=== PATIENT | female | born 1975 | race Caucasian/White ===

== ENCOUNTER 2021-05-15 13:38 | Outpatient (CLI) | payer OTHER, SELFPAY ==
--- NOTE | 2021-05-15 13:30 | DI.RAD_ITS ---
Exam(s) XR SHOULDER RT COMPLETE 2+V EXAM: XR SHOULDER RT COMPLETE 2+V CLINICAL HISTORY: right shoulder pain. TECHNIQUE: 2D digital imaging was performed of the right shoulder. Two images were obtained. AP an d axillary views were obtained. COMPARISON: No exams were available for comparison FINDINGS: BONES: No acute fracture is present. No bony destructive lesion is seen. JOINTS: No dislocation present. SOFT TISSUE: Normal. IMPRESSION: No acute abnormality. If there is concern for internal derangement, an MRI should be considered for further evaluation. DATA REPOSITORY: RADIATION DOSE DELIVERED:
== END 2021-05-15 13:39 | disposition home or self-care (01) ==
LOC: DIORS 13:39
PROVIDERS: Visit Provider Physician Assistant
DX: M25.511 Pain in right shoulder (principal)
CPT/HCPCS: 73030

== ENCOUNTER 2021-05-23 03:22 | Outpatient (CLI) | payer OTHER, SELFPAY ==
[2021-05-23 07:15] LABS: Abs Immature Grans 0.04 10^3/uL (0.0-0.06); Absolute Basophil Count 0.04 10^3/uL (0.0-0.2); Absolute Eosinophil Count 0.24 10^3/uL (0.0-0.7); Absolute Lymphocyte Count 1.96 10^3/uL (1.2-3.4); Absolute Monocyte Count 0.51 10^3/uL (0.1-0.8); Absolute Neutrophil Count 6.45 10^3/uL (1.2-6.7); Basophils % 0.4; Eosinophils % 2.6; HCT 42.6 % (36.0-46.0); Immature Grans % 0.4; Lymphocytes % 21.2; MCH 31.7 pg (27.0-33.0); MCHC 32.9 % (32.0-36.0); MCV 96.4 fL (80-95); MPV 9.6 fL (8.0-11.0); Monocytes % 5.5; Neutrophils % 69.9; Nucleated RBC 0 %; Platelet Count 240 10^3/uL (130-400); RBC 4.42 10^6/uL (3.93-5.22); RDW 12.6 % (11.7-14.6); RDW-SD 45.1 fL; WBC 9.24 10^3/uL (4.4-10.8)
[2021-05-23 07:25] LABS: ESR 2 mm/hr (0-20)
[2021-05-23 08:35] LABS: C-Reactive Protein < 0.05 mg/dL (0.0-0.3)
== END 2021-05-23 03:23 | disposition home or self-care (01) ==
LOC: LBO 03:22
PROVIDERS: Visit Provider Student in an Organized Health Care Education/Training Program
DX: M75.01 Adhesive capsulitis of right shoulder (principal); S43.431A Superior glenoid labrum lesion of right shoulder, initial encounter; S46.011A Strain of muscle(s) and tendon(s) of the rotator cuff of right shoulder, initial encounter; M25.511 Pain in right shoulder
CPT/HCPCS: 36415; 85652; 85025; 86140

== ENCOUNTER 2021-08-01 01:18 | Outpatient (CLI) | payer MEDICAID, SELFPAY ==
[2021-08-01 12:27] LABS: Source Nasal/Nares
[2021-08-01 15:22] LABS: COVID-19 PCR Negative (Negative)
== END 2021-08-01 01:19 | disposition home or self-care (01) ==
LOC: LBO 01:18
PROVIDERS: Visit Provider Student in an Organized Health Care Education/Training Program
DX: Z20.822 Contact with and (suspected) exposure to COVID-19 (principal); Z01.818 Encounter for other preprocedural examination
CPT/HCPCS: 87635

== ENCOUNTER 2021-08-03 05:59 | Day surgery (SDC) | payer MEDICAID, SELFPAY ==
[2021-08-03] VITALS (10 sets, daily range): BP systolic 78–122; BP diastolic 40–89; PULSE 83–98; RESP 16–96; TEMP 36–36.5; O2SAT 93–100; BMI 20.4
--- NOTE | 2021-08-03 06:28 | W.ANESPRE ---
General Info Date of Service Date Performed: 08/03/21 Height: 5 ft 1 in Weight: 49 kg Body Mass Index (BMI): 20.4 Surgical Procedure: Operation Date: 08/03/21 07:40 Proposed Procedures Side Surgeon p REVISION SHOULDER ARTHROSCOPY WITH EXT. FARIDA., REMOVAL OF HARDWARE, BICEPS TENODESIS, SUBACROMIAL DECOMPRESSION, ALLOGRAT SCR. POSSIBLE MANIPULATION UNDER ANESTHESIA Right Mati Ramirez MD Meds Allergies and Home Medications Allergies Allergy/AdvReac Type Severity Reaction Status Date / Time NSAIDS (Non-Steroidal AdvReac Severe gi issues Verified 08/03/21 06:18 Anti-Inflamma Opioids - Morphine Analogues AdvReac Intermediate Verified 08/03/21 06:18 Home Medication Medication Instructions Recorded eletriptan 40 mg tablet 40 mg PO ONCE 05/09/21 acetaminophen 325 mg capsule 325 mg PO ONCE PRN 05/15/21 amoxicillin 500 mg PO TID 14 Days #42 cap 08/03/21 aspirin 81 mg PO DAILY 14 Days #14 tab 08/03/21 aspirin 81 mg PO DAILY 14 Days #14 tab 08/03/21 naproxen 250 - 500 mg PO BID PRN #40 tab 08/03/21 naproxen 250 - 500 mg PO BID PRN #40 tab 08/03/21 oxycodone 5 - 10 mg PO Q4H PRN #18 tab MDD 08/03/21 30 mg oxycodone 5 - 10 mg PO Q4H PRN #18 tab MDD 08/03/21 30 mg Current Visit Medications: Current Medications Generic Name Dose Route Start Last Admin Trade Name Freq PRN Reason Stop Dose Admin Ringer's Solution 1,000 mls @ 100 mls/hr 08/03/21 06:00 IV 08/06/21 23:59 INFUSION JEROME Cefazolin Sodium/Dextrose 2 gm in 50 mls @ 100 mls/hr 08/03/21 06:00 Ancef Duplex IVPB 08/03/21 16:00 PREOP JEROME IV Miscellaneous Supplies 1 each 08/03/21 06:00 Iv Access IV 08/06/21 23:59 DIRECTED JEROME Sodium Chloride 0 ml 08/03/21 06:00 Normal Saline Flush 10 Ml Syr IV 08/06/21 23:59 PRN PRN Sodium Chloride 0 ml 08/03/21 06:00 Normal Saline 10 Ml Vial IJ 08/06/21 23:59 DIRECTED PRN Sterile Water 0 ml 08/03/21 06:00 Water,Injection,Sterile 10 Ml Vial IJ 08/06/21 23:59 DIRECTED PRN PFSH Active Problems Active Problems: Problem Status Onset Code SLAP lesion of right shoulder S43.431A Traumatic tear of right rotator cuff S46.011A Adhesive capsulitis of right shoulder M75.01 Contracture of right shoulder M24.511 Medical History Medical History (Updated 08/03/21 @ 07:20 by Mati Ramirez MD) History of cancer of vulva Migraine Medical History Comments:: Per pt. states her mother has a hard time waking, pt. states she is okay waking up Surgical History Surgical History History of History of hysterectomy History of knee surgery History of tonsillectomy and adenoidectomy History of vulvectomy 07/08/2020 Hx of hand surgery Hx of shoulder surgery [place] teeth extracted Tobacco Smoking/Tobacco Use Status: Never Alcohol Alcohol Intake: current Alcohol intake frequency: 0-2 drinks per day Alcohol type: wine Substance Use Substance use: Never Substance use type: does not use Vital Signs and Lab Results Vital Signs Most Recent Vital Signs in EMR: Most Recent Vital Signs Temp Pulse Resp BP Pulse Ox 36.2 C L 83 16 120/76 100 08/03/21 06:12 08/03/21 06:12 08/03/21 06:12 08/03/21 06:12 08/03/21 06:12 Lab Results Blood Type / Crossmatch: No Data to Display Complete Blood Count: No Data to Display Complete Metabolic Panel: No Data to Display Liver Function Panel: No Data to Display Coagulation Panel: No Data to Display Cardiac Panel: No Data to Display Arterial Blood Gas: No Data to Display Venous Blood Gas: No Data to Display Pancreas Panel: No Data to Display Thyroid Panel: No Data to Display Infectious Disease: Coronavirus (COVID-19)(PCR) Negative (Negative) 08/01/21 10:27 08/01/21 Coronavirus 2019 Source Nasal/Nares 08/01/21 10:27 08/01/21 Blood Cultures: No Data to Display Toxicology Panel: No Data to Display Panel: No Data to Display Anesthesia Assessment and Plan Anesthesia History Personal History: No History of Anesthesia Complications Family History: Other Exercise Tolerance Exercise Tolerance: Metabolic Equivalents>4 Pertinent Negatives Pertinent Negatives: No Symptoms of GERD, No Major Cardiovascular Symptoms or Complaints, No Major Pulmonary Symptoms or Complaints and No History of CVA/TIA Cardiac & Pulmonary Exam Cardiac Exam: Normal S1/S2 Heart Sounds Pulmonary Exam: Clear Bilateral Breath Sounds Implantable Cardiac Device Does patient have a Pacemaker or an ICD?: No Airway Exam Known Difficult Airway: No Mallampati Class: 2 Mouth Opening: Normal (> 3cm) Thyromental Distance: Greater than 3 cm Neck Range of Motion: Full ROM Neck Circumference: Normal Teeth Condition: Normal Dentition ASA Classification ASA Score: ASA 2 Emergency Case?: No NPO Status NPO Status: NPO Clears >2 hours, Solids >8 hours Status Status: Not Relevant due to Medical History and History of Hysterectomy Anesthesia Plan Resuscitation Status: Full Code Anesthesia Technique: General Anesthesia Airway Planned: Endotracheal Tube Pain Management: Surgeon and patient request nerve block Monitors Used: Standard Monitors
[2021-08-03] MEDS: Lactated Ringers 1,000 ML 100 ML IV (06:53)
[2021-08-03] MEDS: Ondansetron 4 MG/2 ML VIAL IVP (06:54)
[2021-08-03] MEDS: Normal Saline Flush 10 ML SYR IV (06:55)
[2021-08-03] MEDS: ceFAZolin 2 GM/50 ML BAG IVPB (08:31)
--- NOTE | 2021-08-03 08:32 | W.ANESNERVE ---
Nerve Block Single Injection Procedure Date and Time Date Performed: 08/03/21 Procedure Start: 07:20 Location Where Procedure Performed Procedure Location: Day Surgery Unit Reason Performed: Postoperative Analgesia Requesting Provider: Mati Ramirez Timeout Performed Timeout Performed: Yes Monitoring Used ECG, Blood Pressure, SpO2 and See EMR for corresponding vital signs Sterility Sterility: Hand Hygiene, Surgical Cap, Surgical Mask, Sterile Gloves and Chlorhexidine Sedation Given During Procedure Sedation Given (Indicate Dose Given): Versed IV Dose:: 6 mg Patient Mental Status Patient Mental Status: Sedate with meaningful communication Nerve Block 1st Nerve Block: Laterality: Right Block Type: Interscalene Needle / Catheter Used: 100mm SonoPlex II Local Anesthetic Bolus (Indicate Dose Given): Lidocaine used for local infiltration of skin, Injected in 3-5ml increments after negative blood aspiration, Bupivacaine 0.5% Dose:: 10 ml and Exparel Dose:: 10 ml Additives (Indicate Dose Given): Normal Saline (Used for hydrodisection 8 ml) Ultrasound: Sterile probe cover and gel used Ultrasound Image Saved?: Yes Nerve Stimulator: Not Used Paresthesia: None Procedure Tolerated: No Complications and Patient did not tolerate well (Patient had expectations of unconsciousness for procedure. I explained the depth of sedation planned. She requested more. The initial dose of 4 mg of Versed patient did not feel was adequate. I gave an additional 2 mg and patient became drowsy but conversational with verbal stimuli.) Procedure Outcome: Successful Procedure Comment: I checked in with the patient throughout if she wanted to continue. She affirmed yes each time. Patient had a good result postprocedurally, heavy block. Did state she was happy with block and procedure post. Performed By: Fuentes Martinez
[2021-08-03] MEDS: EPINEPHrine 30 MG/30 ML VIAL (10:13)
--- NOTE | 2021-08-03 10:15 | W.PM.OP ---
Date of service: 08/03/21 Time of Service: 08:00 Operative Note Operative Note DATE OF PROCEDURE: 08/03/21 PRE-OP DIAGNOSIS: Right: 1. Rotator cuff tear 2. SLAP repair with LHB tendinopathy 3. Bursitis 4. Adhesive capsulitis POST-OP DIAGNOSIS: same PROCEDURE: Right: 1. Arthroscopic biceps tenodesis, CPT# 60603. This involved arthroscopically suturing and reattaching the long head of the biceps tendon to the proximal humerus at the superior margin of the bicipital groove with a screw at the correct tension. 2. Extensive debridement, CPT# 54063. This involved using arthroscopic hand instruments, power instruments, and radiofrequency instruments to release the long head of the biceps tendon and debride areas of labral tearing and synovitis within the glenohumeral joint anteriorly, superiorly and posteriorly, release the anterior capsule and M GH L to restore external rotation, and remove retained permanent suture material and knot stacks from prior SLAP repair. 3. Subacromial decompression with partial acromioplasty, CPT# 51791. This involved using arthroscopic power instruments and a radiofrequency wand to complete a bursectomy, resect significant scarring from the subacromial space, and remove bone spurs on the undersurface of the acromion. 4. Manipulation under anesthesia, CPT #00371: This involved gentle guided manipulation of the shoulder in all directions to release adhesions however only incompletely with stiff endpoints requiring debridement capsular release both glenohumeral and subacromial. The assistant director of financial aid was medically required in order to help assist in techniques above, which require positioning the arm, holding the arthroscope, and manipulating multiple instruments and sutures at the same time. This cannot be done without the help of an experienced assistant director of financial aid. SURGEON: Mati Ramirez PI/SENIOR RESEARCH ASSOCIATE: Ned Smith ANESTHESIA TYPE: General LMA/ETT and Primary Nerve Block Refer to Anesthesia Record ESTIMATED BLOOD LOSS: 10 PATHOLOGY: none sent COMPLICATIONS: None Patient was transported to: PACU Patient's condition: stable Implants: Arthrex: 4.75mm SwiveLocks x 1 Indications: The patient was diagnosed with the above conditions and appropriately indicated for surgical intervention. Please see complete medical record for details. Findings: Exam under anesthesia: Persistent stiffness with external and internal rotation about 45 degrees and forward elevation 115 degrees. Stiff endpoints only limited releases with guided manipulation. Glenohumeral joint: Significant anterior, superior, and posterior scarring adhesions and thickened inflamed capsule. Intact subscapularis. Intact prior SLAP repair with appropriately placed suture anchors and no significant prominence. Limited adjacent superior capsule deficiency about the prior repair. Overall very intact and appropriate appearing articular sided supraspinatus and infraspinatus. Humeral head glenoid articular cartilage intact except for some central glenoid softening mild. Subacromial space: Significant bursitis and profound subacromial adhesions to rotator cuff throughout anteriorly medially and posteriorly. No mobility of rotator cuff prior to releases from acromion on all margins. Grossly intact bursal rotator cuff. Dissolving bio inductive allograft prior apple. Graft incorporated without any defects. Excellent trampoline. No obvious thinning, unable to probe any defects in the bursal cuff,, and unable to engage humeral head rotator cuff on acromion with superior migration. Procedure Description: In the operating room, general anesthesia was induced. Bilateral shoulders were examined. The patient was positioned in the beachchair position. All bony prominences were well-padded. Preoperative antibiotics were held pending tissue samples for culture. The shoulder was prepped and draped in the usual sterile fashion. The correct patient, procedure, and side of the procedure were all verified prior to incision. Starting through the posterior portal a standard complete diagnostic arthroscopy was performed of the glenohumeral joint including inspection of the long head of the biceps, anterior and superior labrum, subscapularis tendon, supraspinatus and infraspinatus tendons, and axillary recess. Rigid cannulas inserted anteriorly. The glenoid and humeral head cartilage as well as the posterior labrum were inspected from an anterior viewing portal. Significant findings and interventions noted above. Arthroscopic graspers and pituitary rongeur were used to obtain multiple tissue samples from multiple sites of inflamed synovium, superior labrum, and removed permanent suture material, which were into 2 specimen cups and sent to the lab for cultures. Cefazolin antibiotics were then administered. Arthroscopic scissors were used to release a thickened M GH L and then radiofrequency wand mechanical shaver to debride and restore anterior anterior superior rotator interval and subcoracoid recesse of significant scarring thickened contracted capsular inflamed tissue. An all-arthroscopic suprapectoral biceps tenodesis was performed through an anterior portal using a Loop N Tack method with a SutureTape FiberLink cinched around and through the tendon. The biceps was tenotomized from the labrum and fixated with a suture anchor at the superior margin of the bicipital groove. The remainder of the anterior, superior, and posterior labrum was debrided to a stable margin using mechanical shaver and radiofrequency ablator. Additional posterior permanent suture material was removed from the prior SLAP repair without any displacement or disruption of the healed labrum repair. There was a small zone of superior capsular defect about the prior SLAP repair site that was medial to the supraspinatus tendon. Starting through the posterior portal, the arthroscope was directed into the subacromial space. A lateral 50 yard line lateral portal was created. A combination of power instruments and a radiofrequency ablator were used to debride bursitis anteriorly, posteriorly, and laterally as well as expose and smooth bone spurring on the undersurface of the acromion. The coracoacromial ligament was partially released. The bursectomy was completed viewing laterally and working from posteriorly and the rotator cuff was thoroughly inspected with findings noted above. Significant time was spent probing, inspecting, and working and viewing from different portals releasing profound adhesions and thickened scarring of rotator cuff to acromion laterally, anteriorly, posterior, and fairly medially possibly rating to healing of the prior bio inductive allograft placed. Restored normal contour of rotator cuff after releases with appropriate motion corresponding the shoulder motion, which was now restored to full with easily 90 degrees external rotation at the side and full abduction. The rotator cuff demonstrated excellent integrity, which was surprising giving the patient clinical status and MR arthrogram. Possible explanation of contrast being injected inside the superior rotator cuff iatrogenically. Either way without any visible defect and unable to create any voids or find a weak area of bursal rotator cuff or articular rotator cuff, not appropriate to takedown significantly healthy tissue for repair or reconstruction. Thoroughly inspected and no indication for repair or reconstruction. With restored range of motion, removing of significant scar adhesions, hopefully decrease pain allowing return to function use and strength after prolonged period of dysfunction. The shoulder was drained of arthroscopic fluid. All portal sites were copiously irrigated. These incisions were closed using 3-0 Monocryl in a buried fashion and then covered with Mastisol, Steri-Strips, Xeroform, dry gauze, and ABDs. The dressings were covered and secured with Medipore tape. The operative extremity was placed into a sling for immobilization. The patient awoke from anesthesia without complication and was transferred to the recovery room in a stable condition.
--- NOTE | 2021-08-03 10:17 | PDOC.DSDIS_ITS ---
Discharge Plan Disposition Patient Disposition: HOME Condition: Stable Discharge Details Reason For Visit: Right shoulder surgery Attending Provider: Mati Ramirez Primary Care Provider: None,None Home Meds and New Rx's Prescriptions: New naproxen 250 mg tablet 250 - 500 mg PO BID PRNQty: 40 RF: 0 aspirin 81 mg tablet,delayed release (DR/EC) 81 mg PO DAILY 14 Days Qty: 14 RF: 0 oxycodone 5 mg tablet 5 - 10 mg PO Q4H MDD 30 mg PRN (Reason: moderate to severe pain) Qty: 18 RF: 0 naproxen 250 mg tablet 250 - 500 mg PO BID PRNQty: 40 RF: 0 aspirin 81 mg tablet,delayed release (DR/EC) 81 mg PO DAILY 14 Days Qty: 14 RF: 0 oxycodone 5 mg tablet 5 - 10 mg PO Q4H MDD 30 mg PRN (Reason: moderate to severe pain) Qty: 18 RF: 0 amoxicillin 500 mg capsule 500 mg PO TID 14 Days Qty: 42 RF: 0 Continued eletriptan 40 mg tablet 40 mg PO ONCE RF: 0 acetaminophen [Tylenol] 325 mg capsule 325 mg PO ONCE PRNRF: 0 Discharge Instructions Additional Instructions: Surgery: Revision shoulder arthroscopy with extensive debridement, contracture release, biceps tenodesis, and subacromial decompression. Activity: You should gradually increase range of motion motion and use of your shoulder. Please perform daily stretching exercises to prevent stiffness. You may use your shoulder for all regular activities. Avoid heavy lifting, reaching overhead, and lifting away from body for approximately 6 to 8 weeks. You may use the sling whenever you are out of the house for a couple weeks. At home it is best to remove the sling and rest the arm on a pillow at your side or support the operative side with your other hand. A physical therapy prescription will be sent electronically to resume in about 2 weeks. ACCELERATED protocol for isolated biceps repair. No rotator cuff repair. History of significant scarring and stiffness. Prescriptions: Sent to [facility] in [facility] on [facility] [employer] (unable to send to [place] or [place]) Amoxicillin 500 mg take 1 three times each day to prevent an infection for 14 days Aspirin 81 mg take 1 daily to prevent a blood clot for 2 weeks Naproxen 250 mg take 1-2 every 12 hours with a meal as needed for moderate pain. May use at the same time as stomach medicine from primary care physician. Oxycodone 5 mg take 1-2 every 4-6 hours as needed for severe pain You may use [id number] Tylenol (acetaminophen) as needed for mild pain. These pain medications may be taken all at once or in different combinations as needed. Also, recommend Colace (docusate) as a stool softener as surgery and pain medicine cause constipation. Dressings: Remove shoulder bandage after 3 days. Leave the sticky Steri-Strips in place until they fall off or remove them after you shower. Cover the incisions with Band-Aids or leave them open to air. You may shower after 5 days. Follow-up: 10-[address] Ramirez You may take off the leg compression stockings this evening at home. You may also leave them on a few days longer if you have a history of leg swelling or edema. Let us know right away if you develop any redness, drainage, fevers, chest pain, or trouble breathing. Do not drink alcohol or drive for at least 24 hours after anesthesia. Please call the office during business hours with any questions or concerns. Referrals: Mati Ramirez MD [ [facility] ST[facility]YSICIAN] - Discharge Orders Discharge Orders: Discharge Order (Routine); Ordered 08/03/21 Ordered By: Mati Ramirez DS: Diagnosis Discharge Diagnosis (1) SLAP lesion of right shoulder: Status: Acute (2) Traumatic tear of right rotator cuff: Status: Acute (3) Adhesive capsulitis of right shoulder: Status: Acute (4) Contracture of right shoulder: Status: Acute (5) Bursitis of right shoulder: Status: Acute
--- NOTE | 2021-08-03 11:28 | W.ANESPOSTOP ---
Postoperative Evaluation Date, Time and Location Date Performed: 08/03/21 Time Performed: 11:29 Patient Location: Day Surgery Unit Vital Signs Most Recent Imported Vital Signs: Most Recent Vital Signs Temp Pulse Resp BP Pulse Ox 36 C L 83 16 107/70 94 08/03/21 11:10 08/03/21 11:10 08/03/21 11:10 08/03/21 11:10 08/03/21 11:10 Pain Score Most Recent Pain Score: Most Recent Pain Score Pain Level 3 08/03/21 11:10 Assessment Mental Status: Awake (Alert & Oriented to Patient Baseline) Airway and Respiratory Function: Patent airway with normal (patient baseline) respiratory exam Cardiovascular Function: Hemodynamically Stable Hydration Status: Adequately Hydrated Nausea & Vomiting: No Nausea or Vomiting Pain: Pt. Denies Any Pain Peripheral Nerve Block: Patient did not receive a nerve block
[2021-08-03] MEDS: oxyCODONE 5 MG TAB PO (11:48)
--- NOTE | 2021-08-07 11:54 | PDOC.ANES ---
Date of service: 08/07/21 Time of Service: 08:15 Anesthesia Note Report Anesthesia Note: Patient called Sunday 08/06 with complaint of jaw pain. Note relayed to me, however, it was my day off and I called her this morning at 0811. Patient reports jaw pain is much better. Connection on the call was spotty and at times very difficult to hear the patient. From what I gathered no other complaint. I did explain the delay in getting back to her was due to our wish to have the provider who took part in the case be the one to call her. Due to the poor connection we finished the call quickly. I did try to tell the patient that if she had any other questions or concerns to call back.
== END 2021-08-03 13:14 | disposition home or self-care (01) ==
PROVIDERS: Visit Provider Student in an Organized Health Care Education/Training Program
PROC: (CPT 29827; principal; 2021-08-03 07:30)
DX: S43.431A Superior glenoid labrum lesion of right shoulder, initial encounter (principal); S46.011A Strain of muscle(s) and tendon(s) of the rotator cuff of right shoulder, initial encounter; M75.01 Adhesive capsulitis of right shoulder; M24.511 Contracture, right shoulder; M75.51 Bursitis of right shoulder; X58.XXXA Exposure to other specified factors, initial encounter
CPT/HCPCS: 29828; 29823; 29826; 76942; 87070; 87075; 87205; J0690; J1100; J2001; J2250; J2370; J2405; J3010

== ENCOUNTER 2021-11-07 11:10 | Outpatient (CLI) | payer MEDICAID, SELFPAY ==
[2021-11-07 11:36] LABS: Source Nasal/Nares
[2021-11-07 14:22] LABS: COVID-19 PCR Negative (Negative)
== END 2021-11-07 11:11 | disposition home or self-care (01) ==
LOC: LBO 11:11
PROVIDERS: Visit Provider Student in an Organized Health Care Education/Training Program
DX: Z20.822 Contact with and (suspected) exposure to COVID-19 (principal); Z01.818 Encounter for other preprocedural examination
CPT/HCPCS: 87635

== ENCOUNTER 2021-11-08 08:21 | Day surgery (SDC) | payer MEDICAID, SELFPAY ==
--- NOTE | 2021-11-07 15:12 | DSU.FORM ---
Patient called several times 1300, 1430, 1515 today to give her her arrival time and pre op instructions. Phone call went right to . Office made aware and will use the [employer] system to text her.
[2021-11-08] VITALS (8 sets, daily range): BP systolic 93–125; BP diastolic 60–92; PULSE 60–80; RESP 12–27; TEMP 36.1–36.6; O2SAT 95–100; BMI 21.6
--- NOTE | 2021-11-08 06:21 | W.ANESPRE ---
General Info Height: 5 ft 1 in Surgical Procedure: Operation Date: 11/08/21 11:25 Proposed Procedure Side Surgeon p Shoulder Manipulation Under Anesthesia Right Mati Ramirez MD Meds Allergies and Home Medications Allergies Allergy/AdvReac Type Severity Reaction Status Date / Time NSAIDS (Non-Steroidal AdvReac Severe gi issues Verified 11/08/21 08:54 Anti-Inflamma Opioids - Morphine Analogues AdvReac Intermediate Verified 11/08/21 08:54 Home Medication Medication Instructions Recorded acetaminophen 325 mg capsule 325 mg PO ONCE PRN 05/15/21 (Tylenol) diazepam 5 mg tablet 5 mg PO Q8H PRN #14 tab 08/15/21 celecoxib 200 mg capsule 200 mg PO DAILY #90 cap 08/28/21 eletriptan 40 mg tablet 40 mg PO ONCE PRN 09/12/21 naproxen 250 mg tablet 250 mg PO BID PRN 11/07/21 Current Visit Medications: Current Medications Generic Name Dose Route Start Last Admin Trade Name Freq PRN Reason Stop Dose Admin Ringer's Solution 1,000 mls @ 30 mls/hr 11/08/21 06:00 IV 12/07/21 23:59 INFUSION JEROME IV Miscellaneous Supplies 1 each 11/08/21 06:00 Iv Access IV 12/07/21 23:59 DIRECTED JEROME Sodium Chloride 0 ml 11/08/21 06:00 Normal Saline Flush 10 Ml Syr IV 12/07/21 23:59 PRN PRN Sodium Chloride 0 ml 11/08/21 06:00 Normal Saline 10 Ml Vial IJ 12/07/21 23:59 DIRECTED PRN Sterile Water 0 ml 11/08/21 06:00 Water,Injection,Sterile 10 Ml Vial IJ 12/07/21 23:59 DIRECTED PRN PFSH Active Problems Active Problems: Problem Status Onset Code Adhesive capsulitis of right shoulder M75.01 Contracture of right shoulder M24.511 Medical History Medical History Bursitis of right shoulder History of cancer of vulva Migraine SLAP lesion of right shoulder Traumatic tear of right rotator cuff Medical History Comments:: Per pt. states her mother has a hard time waking, pt. states she is okay waking up Surgical History Surgical History History of History of hysterectomy History of knee surgery History of tonsillectomy and adenoidectomy History of vulvectomy 07/08/2020 Hx of hand surgery Hx of shoulder surgery [place] teeth extracted Tobacco Smoking/Tobacco Use Status: Never Alcohol Alcohol Intake: current Alcohol intake frequency: 0-2 drinks per day Alcohol type: wine Substance Use Substance use: Never Substance use type: does not use Vital Signs and Lab Results Vital Signs Most Recent Vital Signs in EMR: Temp Pulse Resp BP Pulse Ox 36.6 C 67 16 109/70 100 11/08/21 08:45 11/08/21 08:45 11/08/21 08:45 11/08/21 08:45 11/08/21 08:45 Lab Results Blood Type / Crossmatch: No Data to Display Complete Blood Count: No Data to Display Complete Metabolic Panel: No Data to Display Liver Function Panel: No Data to Display Coagulation Panel: No Data to Display Cardiac Panel: No Data to Display Arterial Blood Gas: No Data to Display Venous Blood Gas: No Data to Display Pancreas Panel: No Data to Display Thyroid Panel: No Data to Display Infectious Disease: Coronavirus (COVID-19)(PCR) Negative (Negative) 11/07/21 11:15 11/07/21 Coronavirus 2019 Source Nasal/Nares 11/07/21 11:15 11/07/21 Blood Cultures: No Data to Display Toxicology Panel: No Data to Display Panel: No Data to Display Anesthesia Assessment and Plan Anesthesia History Personal History: PONV and Delayed Emergence Family History: Other Exercise Tolerance Exercise Tolerance: Metabolic Equivalents>4 Implantable Cardiac Device Does patient have a Pacemaker or an ICD?: No Airway Exam Known Difficult Airway: No Mallampati Class: 2 Mouth Opening: Normal (> 3cm) Thyromental Distance: Greater than 3 cm Neck Range of Motion: Full ROM Neck Circumference: Normal Teeth Condition: Normal Dentition ASA Classification ASA Score: ASA 2 Emergency Case?: No Anesthesia Plan Resuscitation Status: Full Code Anesthesia Technique: General Anesthesia Airway Planned: Natural Airway Pain Management: Surgeon and patient request nerve block Monitors Used: Standard Monitors Preoperative Comments:: 46 yo female for right shoulder manipulation. Sig PMHx: anxiety, migraines, occ EtOH, never smoker. Previous Anes: Barrios 2 grade 2b, easy mask. Previous ISB: 6mg of midaz, and was still extremely anxious. however does not recall the block. 10 mL 0.5% and 10 mL exparel.
[2021-11-08] MEDS: Lactated Ringers 1,000 ML 30 ML IV (09:05)
--- NOTE | 2021-11-08 10:04 | ANES.PREOP_ITS ---
General Info Date of Service Date Performed: 11/08/21 Height: 5 ft 1 in Weight: 51.9 kg Body Mass Index (BMI): 21.6 Surgical Procedure: Operation Date: 11/08/21 11:25 Proposed Procedure Side Surgeon p Shoulder Manipulation Under Anesthesia Right Mati Ramirez MD Meds Allergies and Home Medications Allergies Allergy/AdvReac Type Severity Reaction Status Date / Time NSAIDS (Non-Steroidal AdvReac Severe gi issues Verified 11/08/21 08:54 Anti-Inflamma Opioids - Morphine Analogues AdvReac Intermediate Verified 11/08/21 08:54 Home Medication Medication Instructions Recorded acetaminophen 325 mg capsule 325 mg PO ONCE PRN 05/15/21 (Tylenol) diazepam 5 mg tablet 5 mg PO Q8H PRN #14 tab 08/15/21 celecoxib 200 mg capsule 200 mg PO DAILY #90 cap 08/28/21 eletriptan 40 mg tablet 40 mg PO ONCE PRN 09/12/21 naproxen 250 mg tablet 250 mg PO BID PRN 11/07/21 Current Visit Medications: Current Medications Generic Name Dose Route Start Last Admin Trade Name Valerioq PRN Reason Stop Dose Admin Ringer's Solution 1,000 mls @ 30 mls/hr 11/08/21 06:00 11/08/21 09:05 IV 12/07/21 23:59 30 mls/hr INFUSION JEROME Administration IV Miscellaneous Supplies 1 each 11/08/21 06:00 Iv Access IV 12/07/21 23:59 DIRECTED JEROME Sodium Chloride 0 ml 11/08/21 06:00 Normal Saline Flush 10 Ml Syr IV 12/07/21 23:59 PRN PRN Sodium Chloride 0 ml 11/08/21 06:00 Normal Saline 10 Ml Vial IJ 12/07/21 23:59 DIRECTED PRN Sterile Water 0 ml 11/08/21 06:00 Water,Injection,Sterile 10 Ml Vial IJ 12/07/21 23:59 DIRECTED PRN PFSH Active Problems Active Problems: Problem Status Onset Code Adhesive capsulitis of right shoulder M75.01 Contracture of right shoulder M24.511 Medical History Medical History Bursitis of right shoulder History of cancer of vulva Migraine SLAP lesion of right shoulder Traumatic tear of right rotator cuff Medical History Comments:: Per pt. states her mother has a hard time waking. States they had to perform jaw thrust on her during surgery of August 03, 2021 Surgical History Surgical History History of History of hysterectomy History of knee surgery History of tonsillectomy and adenoidectomy History of vulvectomy 07/08/2020 Hx of hand surgery Hx of shoulder surgery [place] teeth extracted Tobacco Smoking/Tobacco Use Status: Never Alcohol Alcohol Intake: current Alcohol intake frequency: a few times a week Alcohol type: wine Substance Use Substance use: Never Substance use type: does not use Vital Signs and Lab Results Vital Signs Most Recent Vital Signs in EMR: Most Recent Vital Signs Temp Pulse Resp BP Pulse Ox 36.6 C 67 16 109/70 100 11/08/21 08:45 11/08/21 08:45 11/08/21 08:45 11/08/21 08:45 11/08/21 08:45 Lab Results Blood Type / Crossmatch: No Data to Display Complete Blood Count: No Data to Display Complete Metabolic Panel: No Data to Display Liver Function Panel: No Data to Display Coagulation Panel: No Data to Display Cardiac Panel: No Data to Display Arterial Blood Gas: No Data to Display Venous Blood Gas: No Data to Display Pancreas Panel: No Data to Display Thyroid Panel: No Data to Display Infectious Disease: Coronavirus (COVID-19)(PCR) Negative (Negative) 11/07/21 11:15 11/07/21 Coronavirus 2019 Source Nasal/Nares 11/07/21 11:15 11/07/21 Blood Cultures: No Data to Display Toxicology Panel: No Data to Display Panel: No Data to Display Anesthesia Assessment and Plan Anesthesia History Personal History: PONV Family History: No Family History of Anesthesia Complications Exercise Tolerance Exercise Tolerance: Metabolic Equivalents>4 Pertinent Negatives Pertinent Negatives: No Symptoms of GERD, No Major Cardiovascular Symptoms or Complaints, No Major Pulmonary Symptoms or Complaints and No History of CVA/TIA Cardiac & Pulmonary Exam Cardiac Exam: Normal S1/S2 Heart Sounds Pulmonary Exam: Clear Bilateral Breath Sounds Implantable Cardiac Device Does patient have a Pacemaker or an ICD?: No Airway Exam Known Difficult Airway: No Mallampati Class: 2 Mouth Opening: Normal (> 3cm) Thyromental Distance: Greater than 3 cm Neck Range of Motion: Full ROM Neck Circumference: Normal Teeth Condition: Normal Dentition ASA Classification ASA Score: ASA 2 Emergency Case?: No NPO Status NPO Status: NPO Clears >2 hours, Solids >8 hours Status Status: History of Hysterectomy Anesthesia Plan Resuscitation Status: Full Code Anesthesia Technique: General Anesthesia Airway Planned: LMA Pain Management: Surgeon and patient request nerve block Monitors Used: Standard Monitors
--- NOTE | 2021-11-08 11:38 | ROE_ITS ---
Date of service: 11/08/21 Time of Service: 11:00 Operative Note Operative Note DATE OF PROCEDURE: 11/08/21 PRE-OP DIAGNOSIS: Right shoulder recurrent adhesive capsulitis POST-OP DIAGNOSIS: same PROCEDURE: Right shoulder manipulation under anesthesia, CPT 88832 SURGEON: Mati Ramirez ANESTHESIA TYPE: General LMA/ETT and Primary Nerve Block Refer to Anesthesia Record Patient was transported to: PACU Patient's condition: stable Indications: Please see complete medical record for details. Procedure Description: In the operating room, general and regional anesthesia were induced. The patient was positioned supine on the stretcher. Bony prominences were padded. Preoperative antibiotics were omitted. The correct patient, procedure, and site of procedure were all verified prior to beginning. Right shoulder was examined under anesthesia. Range of motion was about 45 units rotation at the side with about 120 degrees of forward elevation before there was soft endpoints. There were no mechanical symptoms or instability. Using a short lever arm, careful steady pressure while transferring forward elevation, external rotation of the side, external and internal rotation at 90 was abduction, and abduction was done achieving full symmetrical range of motion compared to the contralateral side. Extreme external rotation at the side elicited a mild anterior glenohumeral translation or physiologic shuck. There is zoroastrian of the inferior minor sulcus sign that resolved with external rotation. Range of motion was remarkably full after a relatively small amount of anterior inferior palpable releases. All terminal endpoints were exaggerated numerous times and maintained at length given the chronicity and recurrence of this stiff shoulder. There was no significant mechanical symptoms and no true instability. The patient awoke from anesthesia without complication and was transferred to the recovery room in a stable condition.
--- NOTE | 2021-11-08 11:45 | W.ANESNERVE ---
Nerve Block Single Injection Procedure Date and Time Date Performed: 11/08/21 Procedure Start: 11:10 Location Where Procedure Performed Procedure Location: Operating Room Procedure Stop: 11:20 Reason Performed: Postoperative Analgesia Requesting Provider: Mati Ramirez Timeout Performed Timeout Performed: Yes Monitoring Used ECG, Blood Pressure, SpO2 and ETCO2 Sterility Sterility: Hand Hygiene, Surgical Cap, Surgical Mask, Sterile Gloves, Eye Protection and Chlorhexidine Sedation Given During Procedure Sedation Given (Indicate Dose Given): No Sedation given Patient Mental Status Patient Mental Status: Performed under general anesthesia Nerve Block 1st Nerve Block: Laterality: Right Block Type: Supraclavicular Needle / Catheter Used: 100mm SonoPlex II Local Anesthetic Bolus (Indicate Dose Given): Injected in 3-5ml increments after negative blood aspiration and Bupivacaine 0.5% Dose:: 20 mL Additives (Indicate Dose Given): Precedex Dose:: 50 mcg Ultrasound: Sterile probe cover and gel used Ultrasound Image Saved?: Yes Nerve Stimulator: Supplement to Ultrasound use and No twitch or parasthesia noted < 0.5 mA Paresthesia: None Procedure Tolerated: No Complications and Patient tolerated well Procedure Outcome: Successful Performed By: Vandana Boo Supervised By: Fuentes Martinez
--- NOTE | 2021-11-08 11:48 | W.PM.DSUDISC ---
Discharge Plan Disposition Patient Disposition: HOME Condition: Stable Discharge Details Reason For Visit: Right shoulder stiffness Attending Provider: Mati Ramirez Primary Care Provider: None,None Home Meds and New Rx's Prescriptions: New naproxen 250 mg tablet 250 - 500 mg PO BID PRNQty: 20 0RF Rx Instructions: take with a meal oxycodone 5 mg tablet 5 - 10 mg PO Q4H MDD 30 mg PRN (Reason: moderate to severe pain) Qty: 7 0RF Continued acetaminophen [Tylenol] 325 mg capsule 325 mg PO ONCE PRN0RF eletriptan 40 mg tablet 40 mg PO ONCE PRN0RF diazepam 5 mg tablet 5 mg PO Q8H PRN (Reason: muscle spasm) Qty: 14 0RF Rx Instructions: May use prior to PT naproxen 250 mg tablet 250 mg PO BID PRN0RF Discontinued celecoxib 200 mg capsule 200 mg PO DAILY Qty: 90 0RF Discharge Instructions Additional Instructions: Surgery: Right shoulder manipulation under anesthesia Activity: Weightbearing as tolerated right shoulder. Encourage daily stretching to optimize range of motion. Physical therapy has been arranged to resume tomorrow. Prescriptions: naproxen 250 mg take 1-2 every 12 hours with a meal as needed for moderate pain Oxycodone 5 mg take 1-2 every 4-6 hours as needed for severe pain You may use [id number] Tylenol (acetaminophen) as needed for mild pain. These pain medications may be taken all at once or in different combinations as needed. Also, recommend Colace (docusate) as a stool softener as surgery and pain medicine cause constipation. Dressings: None Follow-up: 10-[address] Ramirez Let us know right away if you develop any redness, drainage, fevers, chest pain, or trouble breathing. Do not drink alcohol or drive for at least 24 hours after anesthesia. Please call the office during business hours with any questions or concerns. Referrals: Mati Ramirez MD [ [facility] STAFF PHYSICIAN] -
--- NOTE | 2021-11-08 13:09 | W.ANESPOSTOP ---
Postoperative Evaluation Date, Time and Location Date Performed: 11/08/21 Time Performed: 13:09 Patient Location: Day Surgery Unit Vital Signs Most Recent Imported Vital Signs: Most Recent Vital Signs Temp Pulse Resp BP Pulse Ox 36.1 C L 60 16 95/67 L 95 11/08/21 12:37 11/08/21 12:37 11/08/21 12:37 11/08/21 12:37 11/08/21 12:37 Pain Score Most Recent Pain Score: Most Recent Pain Score Pain Level 0 11/08/21 12:37 Assessment Mental Status: Awake (Alert & Oriented to Patient Baseline) Airway and Respiratory Function: Patent airway with normal (patient baseline) respiratory exam Cardiovascular Function: Hemodynamically Stable Hydration Status: Adequately Hydrated Nausea & Vomiting: No Nausea or Vomiting Pain: Pt. Denies Any Pain Peripheral Nerve Block: Patient did not receive a nerve block Postoperative Comments:: Discussed patient perception of plan today. Very happy. States this is the clearest that she has woken up from surgery ever. No discomfort from the shoulder at this time. I believe the plan today would be appropriate to reproduce for the patient in the future.
== END 2021-11-08 13:15 | disposition home or self-care (01) ==
PROVIDERS: Visit Provider Student in an Organized Health Care Education/Training Program
PROC: (CPT 23700; principal; 2021-11-08 11:15)
DX: M75.01 Adhesive capsulitis of right shoulder (principal)
CPT/HCPCS: 23700; 76942; J1100; J2250; J2405

== ENCOUNTER → 2022-01-28 02:26 | Outpatient (CLI) | payer MEDICAID, SELFPAY ==
--- NOTE | 2022-01-28 11:45 | DI.MRI_ITS ---
Exam(s) MR UPPER JOINT RT WO EXAM: MR UPPER JOINT RT WO CLINICAL HISTORY: pain, weakness,stiffness,ADHESIVE CAPSULITIS,TRAUMATIC TEAR RT ROTATOR CUFF TECHNIQUE: Multiplanar multisequence MRI of the shoulder was performed. COMPARISON: MR MRI SHOULDER ARTHROGRAM-RIGHT from 06/08/2020 CR XR SHOULDER RT COMPLETE 2+V from 05/15/2021 MR UPPER EXTREMITIES ADULT from 06/25/2021 FINDINGS: MARROW:There is no evidence of fracture, Hill-Sachs deformity, nor ominous osseous lesions. There is an AP orientated channel within anterior humeral head which is probably biceps tenodesis anchor at th is level. There is fluid in the subacromial-subdeltoid space with invagination into lateral deltoid muscle. ROTATOR CUFF MECHANISM: AC JOINT/ACROMIUM: There is some degenerative change in the AC joint. Hypertrophy tissue on the supe rior aspect of this joint noted; less so inferiorly and there are no down pointing osteophytes at thi s level. There is no evidence of os acromiale. Supraspinatus: There is some increased signal at the foot pad insertional site but no full-thickness tear. No retraction. No muscle atrophy Infraspinatus: Intact. No evidence of tear nor muscle atrophy. Teres Minor: Intact. No evidence of tear nor muscle atrophy. Subscapularis/anterior cuff: Intact. No abnormal signal at the level of the multipennate insertional fibers. No significant tear nor atrophy. BICEPS TENDON: Normally positioned within the intertubercular groove. Mild increased signal within t his tendon within the intertubercular groove. No tenosynovitis Tenodesis LABRUM: Superior labrum appears thin. Posterior labrum is intact. Anterior labrum is intact. Infer ior labrum is intact. No evidence of paralabral cyst. No obvious tear of the inferior glenohumeral ligament. No periosteal stripping GLENOHUMERAL JOINT: No joint effusion nor obvious loose intra-articular bodies. No chondral defects. No osteophytes. No degenerative subarticular cysts. No evidence of capsular tear. QUADRILATERAL SPACE: No evidence of mass in the region of the axillary nerve and dorsal circumflex hu meral vessels. Visualized triceps muscle at this level appears unremarkable. IMPRESSION: 1. There is evidence of previous surgery which may be biceps tenodesis at the humeral head level. Bi ceps tendon is normally situated within the intertubercular groove and there is note high-grade tear biceps nor tenodesis 2. Mild increased signal noted in the supraspinatus foot pad just above the greater tuberosity but no high-grade tear nor atrophy nor tear of the other muscular components Of the rotator cuff mechanism. 3. There is fluid in the subacromial-subdeltoid bursa noted which invaginate into the deltoid muscula ture over the superolateral aspect of the shoulder. Has the appearance of some tearing of the deltoi d at this level DATA REPOSITORY:
== END ==
PROVIDERS: PCP Student in an Organized Health Care Education/Training Program; Visit Provider Student in an Organized Health Care Education/Training Program
DX: M75.01 Adhesive capsulitis of right shoulder (principal); S46.011A Strain of muscle(s) and tendon(s) of the rotator cuff of right shoulder, initial encounter; X58.XXXA Exposure to other specified factors, initial encounter
CPT/HCPCS: 73221

== ENCOUNTER 2022-02-06 15:01 | Outpatient (REF) | payer MEDICAID, SELFPAY ==
[2022-02-06 21:10] LABS: HCT 40.5 % (36.0-46.0); HGB 13.7 g/dL (11.2-15.7); MCH 32.5 pg (27.0-33.0); MCHC 33.8 % (32.0-36.0); MCV 96 fL (80-95); MPV 10.6 fL (8.0-11.0); Platelet Count 218 10^3/uL (130-400); RBC 4.22 10^6/uL (3.93-5.22); RDW 11.6 % (11.7-14.6); RDW-SD 40.4 fL; WBC 6.89 10^3/uL (4.4-10.8)
[2022-02-06 21:37] LABS: ALT 17 U/L (14-59); AST 17 U/L (15-37); Albumin 3.9 g/dL (3.4-5.0); Alkaline Phosphatase 56 U/L (46-116); Anion Gap 6.7 mmol/L (3-11); BUN 15 mg/dL (7-18); Bilirubin, Total 0.4 mg/dL (0.2-1.0); CO2 30.3 mmol/L (21.0-32.0); CREATININE 0.9 mg/dL (0.55-1.02); Calcium 8.9 mg/dL (8.5-10.1); Calculated LDL 168 mg/dL (<100); Chloride 100 mmol/L (98-107); Cholesterol 263 mg/dL (<200); Glucose 97 mg/dL (74-106); HDL Cholesterol 58 mg/dL (40-60); Sodium 137 mmol/L (136-145); TSH 0.76 uIU/mL (0.36-3.74); Total Protein 7.1 g/dL (6.4-8.2); Triglyceride 186 mg/dL (<150)
== END 2022-02-06 15:02 | disposition home or self-care (01) ==
LOC: NCHCN 15:01
PROVIDERS: PCP Student in an Organized Health Care Education/Training Program; Visit Provider Nurse Practitioner Family
DX: Z13.220 Encounter for screening for lipoid disorders (principal); R00.0 Tachycardia, unspecified
CPT/HCPCS: 80053; 80061; 85027; 84443

== ENCOUNTER 2022-10-02 20:05 | Outpatient (REF) | payer MEDICAID, SELFPAY ==
[2022-10-02 20:13] LABS: ESR 3 mm/hr (0-20)
[2022-10-02 20:38] LABS: Calculated LDL 147 mg/dL (<100); Cholesterol 239 mg/dL (<200); HDL Cholesterol 72 mg/dL (40-60); Triglyceride 103 mg/dL (<150)
[2022-10-03 17:43] LABS: Rheumatoid Factor <8.6 IU/mL (<12.0)
[2022-10-04 14:58] LABS: ANA Interpretation Negative (Negative)
== END 2022-10-02 20:06 | disposition home or self-care (01) ==
LOC: NCHCN 20:05
PROVIDERS: PCP Nurse Practitioner Family; Visit Provider Nurse Practitioner Family
DX: M79.642 Pain in left hand (principal); M79.641 Pain in right hand; E78.5 Hyperlipidemia, unspecified
CPT/HCPCS: 80061; 85652; 86038; 86431

== ENCOUNTER 2023-01-24 19:12 | Outpatient (REF) | payer MEDICAID, SELFPAY | END 2023-01-24 19:13 | disposition home or self-care (01) | LOC: NCHCN 19:12 | PROVIDERS: PCP Nurse Practitioner Family; Visit Provider Physician Assistant | DX: R35.0 Frequency of micturition (principal) | CPT/HCPCS: 87086; 87480; 87510; 87660 ==

== ENCOUNTER 2023-01-27 16:11 | Outpatient (REF) | payer MEDICAID, SELFPAY | END 2023-01-27 16:12 | disposition home or self-care (01) | LOC: NCHCN 16:11 | PROVIDERS: PCP Nurse Practitioner Family; Visit Provider Physician Assistant | DX: R35.0 Frequency of micturition (principal) | CPT/HCPCS: 87480; 87510; 87660 ==

== ENCOUNTER 2024-05-07 11:38 | Outpatient (REF) | payer MEDICAID, SELFPAY ==
[2024-05-07 20:08] LABS: ALT 19 U/L (14-59); AST 20 U/L (15-37); Albumin 3.6 g/dL (3.4-5.0); Alkaline Phosphatase 70 U/L (46-116); Anion Gap 5.1 mmol/L (3-11); BUN 15 mg/dL (7-18); Bilirubin, Total 0.32 mg/dL (0.2-1.0); CO2 32.9 mmol/L (21.0-32.0); CREATININE 1.1 mg/dL (0.55-1.02); Calcium 9.7 mg/dL (8.5-10.1); Calculated LDL 158 mg/dL (<100); Chloride 106 mmol/L (98-107); Cholesterol 278 mg/dL (<200); Glucose 98 mg/dL (74-106); HDL Cholesterol 81 mg/dL (40-60); Potassium 4.6 mmol/L (3.5-5.1); Sodium 144 mmol/L (136-145); Total Protein 7.2 g/dL (6.4-8.2); Triglyceride 198 mg/dL (<150)
== END 2024-05-07 11:39 | disposition home or self-care (01) ==
LOC: NCHCN 11:38
PROVIDERS: PCP Nurse Practitioner Family; Visit Provider Nurse Practitioner Family
DX: R35.0 Frequency of micturition (principal)
CPT/HCPCS: 80053; 80061

== ENCOUNTER 2024-05-24 08:40 | Outpatient (REF) | payer MEDICAID, SELFPAY ==
[2024-05-24 19:27] LABS: Anion Gap 4.7 mmol/L (3-11); BUN 11 mg/dL (7-18); CO2 32.3 mmol/L (21.0-32.0); CREATININE 1.1 mg/dL (0.55-1.02); Calcium 9.8 mg/dL (8.5-10.1); Chloride 104 mmol/L (98-107); Glucose 84 mg/dL (74-106); Potassium 4.6 mmol/L (3.5-5.1); Sodium 141 mmol/L (136-145)
== END 2024-05-24 08:41 | disposition home or self-care (01) ==
LOC: NCHCN 08:40
PROVIDERS: PCP Nurse Practitioner Family; Visit Provider Nurse Practitioner Family
DX: R79.89 Other specified abnormal findings of blood chemistry (principal)
CPT/HCPCS: 80048

== ENCOUNTER 2024-05-26 19:50 | Outpatient (REF) | payer MEDICAID, SELFPAY ==
[2024-05-26 20:22] LABS: HCT 38.6 % (36.0-46.0); HGB 12.5 g/dL (11.2-15.7); MCH 31.6 pg (27.0-33.0); MCHC 32.4 % (32.0-36.0); MCV 98 fL (80-95); MPV 10.5 fL (8.0-11.0); Platelet Count 206 10^3/uL (130-400); RBC 3.96 10^6/uL (3.93-5.22); RDW-SD 43.4 fL; WBC 7.58 10^3/uL (4.4-10.8)
[2024-05-26 20:44] LABS: TSH (W/Ref FT4) 1.77 uIU/mL (0.36-3.74)
[2024-05-26 20:45] LABS: COMMENT (LAB VIEW ONLY) 110.88 mg/dL; Microalb ug/mg Crea 3.5 ug/mg Cr
== END 2024-05-26 19:51 | disposition home or self-care (01) ==
LOC: NCHCN 19:50
PROVIDERS: PCP Nurse Practitioner Family; Visit Provider Nurse Practitioner Family
DX: R79.89 Other specified abnormal findings of blood chemistry (principal); R53.83 Other fatigue
CPT/HCPCS: 85027; 82043; 82570; 84443

== ENCOUNTER 2024-05-28 08:00 | Day surgery (SDC) | payer MEDICAID, SELFPAY ==
--- NOTE | 2024-05-27 20:35 | COLE_ITS ---
Date of service: 05/28/24 Time of Service: 12:59 Colonoscopy Report Date of procedure: 05/28/24 Pre-op diagnosis general: CRC screening/constipation Post-op diagnosis procedure note: same Surgeon: Miya Lamb Anesthesia Type: General:No Airway Estimated blood loss (mL): 1 Pathology: other Complications: None Disposition: same day Prep: Miralax/Dulcolax Procedure Description: After informed consent was obtained, explaining risks of the procedure, including but not limits to: bleeding, infections, complications of anesthesia, perforations (which may require antibiotics and /or surgery and stay in the hospital), and abdominal pain/cramping. The patient was taken to the procedure room and placed in a left decubitous position. Monitors were applied and a time out was done. The patients name, date of , procedure, allergies to medic ations and metal in their body was reviewed. The patient was then sedated. Once sedated and comfortable a rectal exam was done. External exam was normal. Internal exam revealed a normal sphincter tone and no palpable masses. The previously lubricated Olympus scope was then introduced (see RN notes for scope number) and retrofelexed. No internal hemorrhoids were identified. The scope was then advanced to the cecum without difficulty. The colon is tortuous. The TI and appendiceal orifice were identified. The scope was then slowly retracted over minutes back into the rectum. Polyps: No diverticula: No Random Bx are taken w/ a cold biting forcept at 80/50cm and rectum. All specimens are retreived and no bleeding is noted. The mucosa is pink and healthy w/ a normal vascular pattern. The scope was removed, and the patient was woken up and taken back to Same day surgery in stable condition. The patient tolerated the procedure well and there were no immediate complicatio ns. Follow up: The patient should follow up in 10 years, unless they develop changes in bowel habits or other new gastrointestinal complaints. [place] Bowel Prep [place] Bowel Prep Right Colon: 3 Left Colon: 3 Transverse Colon: 3 Total Score: 9
--- NOTE | 2024-05-27 20:38 | PDOC.DSDIS_ITS ---
Date of service: 05/28/24 Time of Service: 10:51 Discharge Plan Disposition Patient Disposition: Home Condition: Good Discharge Details Reason For Visit: colon cancer screening Attending Provider: Miya Lamb Primary Care Provider: Ioana Alonso Home Meds and New Rx's Prescriptions: Continued eletriptan 40 mg tablet 40 mg PO ONCE PRN acetaminophen 500 mg capsule 1,000 mg PO Q6H PRN metoprolol succinate 25 mg tablet extended release 24 hr 50 mg PO DAILY evolocumab [Repatha Syringe] 140 mg subcut .[id number] fluticasone propionate 50 mcg/actuation spray,suspension 1 spray intranasal BID Rx Instructions: administer into each nostril Discontinued bisacodyl [Dulcolax (bisacodyl)] 5 mg tablet,delayed release (DR/EC) 5 mg PO ONCE Qty: 4 0RF Rx Instructions: Take per colonoscopy instructions provided by ordering providers office polyethylene glycol 3350 17 gram/dose powder 17 g PO ONCE Qty: 238 0RF Rx Instructions: Take per colonoscopy instructions provided by ordering providers office Discharge Instructions Additional Instructions: DSU Colonoscopy Post- Op Instructions Instructions for Everyone who is given Anesthesia: For your safety, please do the following for the next twenty-four (24) hours: *Do Not operate a motor vehicle (car, truck, motorcycle, etc.) *Do Not drink alcoholic beverages or use any recreational drugs for the first 24 hours or while taking pain medications. The medications in your body may have a reaction that can be dangerous. *Do Not make any important decisions or sign any important papers. Findings:Normal colon We did do random biopsies. My office will send you a letter in 2 to 3 weeks time with the results of the biopsies. Follow up:Repeat in 10 yrs time 1. No lifting over 20 pounds or strenuous activity for the first 24 hours after your procedure. After 24 hours there are no restrictions on your activity but you may feel fatigued for a few days. 2. After you arrive home you may have a light meal and return to your normal diet as you can tolerate it without feeling sick to your stomach. 3. You may have a bloated, gaseous feeling in your belly (abdomen) after a colonoscopy. Passing gas and belching will help. Walking or lying down on your left side with your knees flexed may relieve the discomfort. Call the office at [phone] (Office) or [phone] (Hospital) right away if you notice any of the following: a.Vomiting of blood or ?coffee ground stools?. b.Rectal bleeding 1Tbsp, blood clots or continuous bleeding. c.Severe belly (abdominal) pain. d.A hard distended belly (abdomen) and an inability to pass gas. 4. Please don?t expect to have a normal BM (bowel movement) for 2-3 days after your procedure. 5. If there are questions regarding the findings of your procedure, please contact your doctor 6. If you are unable to contact your doctor with a problem, contact the hospital at [phone]. 7. Continue all your regular medications unless directed otherwise. I understand the above instructions and have no questions. Signature of Patient or Adult Escort Name of Responsible Adult Escort Signature of Nurse Date/Time Activity:: see above Diet:: see above Discharge Orders Discharge Orders: Discharge Order (Routine); Ordered 05/28/24 Ordered By: Miya Lamb DS: Diagnosis Discharge Diagnosis (1) Constipation: Status: Acute (2) Screening for malignant neoplasm of colon performed: Status: Acute Asessment and Plan: The patient is seen and examined after their colonoscopy.? The patient has been able to pass gas.? They are not having abdominal pain.? They have been able to tolerate liquids and a snack.? They do not have any nausea or vomiting.? They are not having any chest pain or shortness of breath.??? They are not having any rectal bleeding. Their vital signs have been stable-see nursing notes. We discussed findings during their colonoscopy, and any biopsies that were done/polyps that were removed. The patient will be sent a letter with any biopsy results, and when to repeat the colonoscopy.-see discharge instructions. Patient was given explicit instructions to follow-up regarding colonoscopy-refer to discharge instructions.? We reviewed resumption of medications. Patient verbalized understanding and discharged in stable and satisfactory condition- See nursing notes.
[2024-05-28 08:05] VITALS: BP 118/72; PULSE 56; RESP 18; TEMP 36.2; O2SAT 100
[2024-05-28] MEDS: Normal Saline Flush 10 ML SYR IV (08:30)
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
[2024-05-28 10:11] VITALS: BMI 25.4
--- NOTE | 2024-05-28 10:33 | BOWEL_PTH ---
PATIENT: Leda Loja LOC: [facility] U#:[id number] AGE/SX: 48/F ROOM: RE05/28/[address]: Miya Lamb : 1975 BED: DIS: 05/28/2024 SPEC #: [id number] RECD: 05/28/24 12:56 STATUS: LEILA REQ #: [id number] LUIS ALBERTO: 05/28/24 10:[address]: Miya Lamb DEPT: Surgical Specimen RECD BY: Paulette Angulo ENTERED: 05/28/24 12:57 SP TYPE: Bowel OTHR DR: Matthew Alonso Tissues: 1 - BIOPSY BOWEL 2 - BIOPSY BOWEL 3 - BIOPSY BOWEL Procedures: GROSS AND MICRO LEVEL 4 Comments: [id number]
[2024-05-28 10:45] VITALS: BP 135/73; PULSE 63; RESP 18; TEMP 35.8; O2SAT 99
--- NOTE | 2024-05-28 10:57 | W.ANESPOSTOP ---
Postoperative Evaluation Date, Time and Location Date Performed: 05/28/24 Time Performed: 10:57 Patient Location: Day Surgery Unit Vital Signs Most Recent Imported Vital Signs: Most Recent Vital Signs Temp Pulse Resp BP Pulse Ox 36.2 C L 56 L 18 118/72 100 05/28/24 08:05 05/28/24 08:05 05/28/24 08:05 05/28/24 08:05 05/28/24 08:05 Pain Score Most Recent Pain Score: Most Recent Pain Score Pain Level 0 05/28/24 08:05 Assessment Mental Status: Awake (Alert & Oriented to Patient Baseline) Airway and Respiratory Function: Patent airway with normal (patient baseline) respiratory exam Cardiovascular Function: Hemodynamically Stable Hydration Status: Adequately Hydrated Nausea & Vomiting: No Nausea or Vomiting Pain: Pt. Denies Any Pain Peripheral Nerve Block: Patient did not receive a nerve block
[2024-05-28 11:10] VITALS: BP 128/70; PULSE 60; RESP 18; TEMP 36; O2SAT 98
== END 2024-05-28 11:20 | disposition home or self-care (01) ==
LOC: SUR 08:01
PROVIDERS: PCP Nurse Practitioner Family; Visit Provider Surgery
PROC: 0DJD8ZZ Inspection of Lower Intestinal Tract, Via Natural or Artificial Opening Endoscopic (ICD-10-PCS; CPT 45378; principal; 2024-05-28 09:30)
DX: K59.00 Constipation, unspecified (principal); Z12.11 Encounter for screening for malignant neoplasm of colon; K63.89 Other specified diseases of intestine
CPT/HCPCS: 45380; 88305; J2003; J2704